=== PATIENT | male | born 1980 | race Caucasian/White ===

== ENCOUNTER 2024-01-04 15:10 | Outpatient (CLI) | payer SELFPAY ==
--- NOTE | 2024-01-04 15:14 | XR_ITS ---
WS: [id number] XR cervical spine 3V* [id number] REASON FOR EXAM: M54.2 - Cervicalgia FINDINGS: Normal cervical spine curvatures. Interbody fusion device at C5-C6. The device is intact and in proper position and alignment. There ma y be partial fusion of C5 and C6 anteriorly. Remaining intervertebral disc spaces are intact and well preserved. There is minimal anterolisthesis of C6 on C7. Mild osteophytosis of the inferior endplate of C6 and s uperior endplate of C7. XR/XR cervical spine 3V* [id number] IMPRESSION: Postsurgical change at C5-C6 with mild degenerative spondylosis at C6-C7.
== END 2024-01-04 15:11 | disposition home or self-care (01) ==
LOC: RAD 15:11
PROVIDERS: Family Provider Family Medicine; PCP Nurse Practitioner Family; Visit Provider Nurse Practitioner Family
DX: M54.2 Cervicalgia (principal); Z98.890 Other specified postprocedural states
CPT/HCPCS: 72040